=== PATIENT | male | born 2000 | race Caucasian/White ===

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

== ENCOUNTER 2024-04-13 22:24 | Emergency (ER) | payer BC ==
[~2024-04-13] VITALS: Ht 177.8 cm; Wt 57.6 kg
[~2024-04-13 22:24] MED LIST changes: +IBUPROFEN600 MG PO; +ZOFRAN ODT4 MG SL
[2024-04-13 22:45] LABS: BASOPHILS 0.4 % (0-2); HEMATOCRIT 44.3 % (35.0-50.0); HEMOGLOBIN 15.4 g/dL (12.0-18.0); LYMPHOCYTES 11.1 % (24-44); MCH 30.1 (27-36); MCHC 34.8 g/dl (30-36); MCV 86.3 fl (81-99); NEUTROPHILS 78.5 % (39-80); PLATELET COUNT 187 K/uL (140-440); RBC 5.13 M/ul (4.3-5.7); RDW 13.1 (10.5-15.0)
[2024-04-13] MEDS ORDERED: KETOROLAC TROMETHAMINE 30 MG/ML VIAL IV ONE (22:45)
[2024-04-13] MEDS ORDERED: ondansetron HCL 4 MG/2 ML VIAL IV ONE (22:45)
[2024-04-13] MEDS ORDERED: SODIUM CHLORIDE 0.9% 1,000 ML IV ONE (22:45)
[2024-04-13 22:59] LABS: ALBUMIN/GLOBULIN RATIO 1.38 (1.1-2.4); ANION GAP 13.4 (7-21); CALCIUM 9.1 mg/dL (8.5-10.1); POTASSIUM 3.4 mmol/L (3.5-5.1); PROTEIN, TOTAL 6.9 g/dL (6.4-8.2)
[2024-04-13] MEDS ORDERED: TAMSULOSIN HCL 0.4 MG CAP PO ONE (23:00)
[2024-04-13] MEDS ORDERED: HYDROmorphone HCL 1 MG/ML SYR IV PRN (23:00)
[2024-04-13] MEDS ORDERED: HYDROCODON-ACE1 EA10 PO (23:42)
[2024-04-13] MEDS ORDERED: FLOMAX0.4 MG PO (23:42)
[2024-04-13] MEDS ORDERED: HYDROCODONE BIT/ACETAMINOPHEN 5/325 MG 1 TAB HOME.PACK PO ONE (23:45)
[2024-04-13 23:48] LABS: BILIRUBIN, URINE POSITIVE (negative); BLOOD/HGB, URINE LARGE (Negative); KETONE, URINE NEGATIVE (Negative); LEUK ESTERASE, URINE NEGATIVE (negative); NITRITE, URINE NEGATIVE (negative); PH, URINE 5.5 (5-7)
[2024-04-13 23:52] LABS: BACTERIA, URINE RARE /hpf (negative); CASTS, URINE NONE SEEN \\lpf; COLLECTION TYPE, URINE CLEAN CATCH; CRYSTALS, URINE NONE SEEN (0-1+); EPITHELIAL CELLS, URINE 0 /lpf (0-1+); RED BLOOD CELLS, URINE >50 /hpf (0-5); REFLEX CULTURE, URINE No (No)
[2024-04-14 00:03] VITALS: BP 100/89
== END 2024-04-14 00:04 | disposition home or self-care (01) ==
LOC: ED 22:24
PROVIDERS: Emergency Medicine
DX: N20.1 Calculus of ureter (principal); Z87.442 Personal history of urinary calculi; Z79.899 Other long term (current) drug therapy
CPT/HCPCS: 36415; 80053; 81001; 85025; 96374; 96375; 99284-25; A9270; J1171; J1885; J2405; J7030

== ENCOUNTER 2024-05-20 08:41 | Emergency (ER) | payer BC ==
[~2024-05-20] VITALS: Ht 177.8 cm; Wt 56.0 kg
[~2024-05-20 08:41] MED LIST changes: +FLOMAX0.4 MG PO; +HYDROCODON-ACE1 EA10 PO
[2024-05-20 09:12] LABS: BASOPHILS 0.3 % (0-2); EOSINOPHILS 0.2 % (0-6); HEMATOCRIT 42.2 % (35.0-50.0); HEMOGLOBIN 14.7 g/dL (12.0-18.0); LYMPHOCYTES 7.1 % (24-44); MCH 29.4 (27-36); MCHC 34.8 g/dl (30-36); MCV 84.3 fl (81-99); MONOCYTES 6.1 % (0-12); NEUTROPHILS 86.3 % (39-80); PLATELET COUNT 196 K/uL (140-440); RDW 13.2 (10.5-15.0)
[2024-05-20] MEDS ORDERED: ondansetron HCL 4 MG/2 ML VIAL IV PRN (09:15)
[2024-05-20] MEDS ORDERED: KETOROLAC TROMETHAMINE 15 MG/ML VIAL IV ONE (09:15)
[2024-05-20] MEDS ORDERED: SODIUM CHLORIDE 0.9% 1,000 ML IV PRN (09:15)
[2024-05-20 09:22] LABS: ALBUMIN 3.8 g/dL (3.4-5.0); ALBUMIN/GLOBULIN RATIO 1.36 (1.1-2.4); ANION GAP 13.4 (7-21); BILIRUBIN, TOTAL 0.8 mg/dL (0.2-1.0); BUN/CREATININE RATIO 13.08 (6.0-28.6); CALCIUM 8.9 mg/dL (8.5-10.1); CREATININE, SERUM 1.07 mg/dL (0.70-1.30); POTASSIUM 3.4 mmol/L (3.5-5.1); PROTEIN, TOTAL 6.6 g/dL (6.4-8.2)
[2024-05-20 10:06] LABS: BILIRUBIN, URINE NEGATIVE (negative); BLOOD/HGB, URINE LARGE (Negative); KETONE, URINE TRACE (Negative); LEUK ESTERASE, URINE NEGATIVE (negative); NITRITE, URINE NEGATIVE (negative)
[2024-05-20 10:16] LABS: RED BLOOD CELLS, URINE 21-40 /hpf (0-5); WHITE BLOOD CELLS, URINE 0-1 /HPF (0-5)
[2024-05-20 10:17] LABS: EPITHELIAL CELLS, URINE 0 /lpf (0-1+); REFLEX CULTURE, URINE No (No)
[2024-05-20 10:18] LABS: CRYSTALS, URINE CALCIUM OXALATE 2+ (0-1+)
[2024-05-20] MEDS ORDERED: KETOROLAC TROME10 MG PO (10:37)
[2024-05-20 10:39] VITALS: BP 100/63
== END 2024-05-20 10:39 | disposition home or self-care (01) ==
LOC: ED 08:41
PROVIDERS: Emergency Medicine
DX: N20.0 Calculus of kidney (principal)
CPT/HCPCS: 36415; 74176; 80053; 81001; 85025; 96374; 96375; 99284-25; J1885; J2405; J7030